=== PATIENT | male | born 1995 | race Caucasian/White ===

== ENCOUNTER 2017-03-05 17:14 | Emergency (ER) | payer SELFPAY ==
[~2017-03-05] VITALS: Ht 185.4 cm; Wt 74.8 kg
--- NOTE | 2017-03-05 18:26 | NUR ---
Lola hernandez in ED - 03/05/17 at [address] Mccormick pt is medically clear and may be trans to [facility].
--- NOTE | 2017-03-05 19:08 | NUR ---
Received report from FRANCISCO Glez. Assumed care of pt at this time. Dr. Merrill at bedside.
--- NOTE | 2017-03-05 19:36 | NUR ---
Sling applied, pos CMS s/p application. Pt stable for discharge per Dr. Merrill. Pt given ACI. Pt verbalized understanding of dc instructions. Pt ambulated out of er with steady gait and ride home.
[2017-03-05 19:39] VITALS: BP 111/60
== END 2017-03-05 19:40 | disposition home or self-care (01) ==
LOC: ER 17:14
DX: S43.004A Unspecified dislocation of right shoulder joint, initial encounter (principal); W21.07XA Struck by softball, initial encounter; Y93.64 Activity, baseball; Y92.328 Other athletic field as the place of occurrence of the external cause; Y99.9 Unspecified external cause status
CPT/HCPCS: 29105; 73030; 99284; A4663